=== PATIENT | male | born 1975 | race African-American/Black ===

== ENCOUNTER 2021-10-02 16:12 | Emergency (ER) | payer MEDICARE, SELFPAY ==
[2021-10-02 16:27] VITALS: BP 117/70; BP 119/77; PULSE 80; PULSE 83; TEMP 37; O2SAT 100; O2SAT 97; BMI 25.7
--- NOTE | 2021-10-02 16:57 | ED.PSYCH ---
HPI - Psych General Chief Complaint: Psychiatric Symptoms Stated Complaint: Crisis Time Seen by Provider: 10/02/21 16:56 Source: patient and EMS Mode of arrival: EMS Limitations: no limitations History of Present Illness HPI Narrative: Patient is a 46 year old male presenting to the emergency department today with increased depression. Patient states that lately he has been feeling more depressed than usual. Patient denies any SI or HI. Patient denies any dizziness, lightheadedness, abdominal pain, nausea, vomiting, fever, chills, blurry vision, double vision, loss of vision, chest pain, difficulty breathing, shortness of breath, back pain, night sweats, pain with urination, increased urinary frequency, increased urinary urgency, blood in his urine or stool, syncope or a near syncopal episode, recent trauma or falls, bowel incontinence, bladder incontinence, bowel retention, bladder retention, or any other complaints at this time. Patient states that he has a history of his left eye bothering him, so he wears an eyepatch. MD complaint: feels depressed Onset (ago): day(s) Duration: constant History of same: Yes Relieving factors: none Exacerbating factors: none Associated psychiatric symptoms: depression Associated symptoms: denies other symptoms Treatments prior to arrival: none Related Data Allergies Allergy/AdvReac Type Severity Reaction Status Date / Time No Known Allergies Allergy Verified 10/02/21 16:56 Review of Systems Constitutional: Constitutional: Reports no additional constitutional complaints, Denies chills, Denies fever(s) and Denies night sweats Eyes: Eyes: Reports no additional eye complaints, Denies blurry vision, Denies change in vision, Denies diplopia, Denies eye discharge, Denies loss of vision and Denies eye pain ENT: Denies dizziness Cardiovascular: Cardiovascular: Reports no additional cardiovascular complaints, Denies chest pain, Denies lightheadedness, Denies Loss of Consciousness and Denies dyspnea Respiratory: Respiratory: Reports no additional respiratory complaints and Denies dyspnea Gastrointestinal: Gastrointestinal: Reports no additional gastrointestinal complaints, Denies abdominal pain, Denies melena, Denies hematochezia, Denies change in bowel habits and Denies change in stool character Genitourinary: Genitourinary: Reports no additional male genitourinary complaints, Denies hematuria, Denies oliguria, Denies difficulty urinating, Denies dysuria, Denies urinary frequency, Denies urinary hesitancy, Denies urinary incontinence and Denies urinary urgency Musculoskeletal: Musculoskeletal: Reports no additional musculoskeletal complaints, Denies numbness and Denies tingling Neurologic: Denies dizziness, Denies loss of vision, Denies numbness and Denies tingling Psychiatric: Psychiatric: Reports no additional psychiatric complaints, Reports depression, Denies homicidal ideation and Denies suicidal ideation Endocrine: Endocrine: Reports no additional endocrine complaints Hematologic/Lymphatic: Hematologic/Lymphatic: Reports no additional hematologic/lymphatic complaints Allergic/Immunologic: Allergic/Immunologic: Reports no additional allergic/immunologic complaints PMFSH Past Medical History Attestation statement: The following information was validated with the patient. Source: old records reviewed Social History Social History Advance Directives: No Advance Directives Information Provided: No Physical Exam Vital Signs: Vital Signs: Last Vital Signs Temp 98.6 F 10/02/21 16:27 Pulse 80 10/02/21 16:27 BP 117/70 10/02/21 16:27 Pulse Ox 100 10/02/21 16:27 BMI result Body Mass Index 25.7 Const: General: cooperative, no acute distress, alert and awake Nutritional Appearance: well nourished Orientation/consciousness: patient oriented x3 Limitations: no limitations HENMT: Head: Yes normal to inspection and Yes atraumatic Ears: hearing grossly normal bilaterally and external ears normal General nose exam: Normal external nose present, no nasal discharge noted and no epistaxis Face and sinus: Yes normal facial exam, No abrasion and No laceration Mouth: Normal oral and palatal mucosa present, no drooling and no muffled voice Eyes: General: appearance normal, both eyes and all related structures Periorbital: periorbital findings normal Eyelids: Yes eyelids normal Conjunctivae: conjunctivae normal Pupils: Equal, round and reactive pupils present EOM: EOMs intact bilaterally Neck: Neck: Yes normal visual inspection, Yes full ROM and Yes no lymphadenopathy Chest: Chest palpation & inspection: normal inspection of the chest Resp: Effort & Inspection: normal respiratory effort and able to speak in complete sentences Auscultation: clear to auscultation bilaterally Cardio: Rate: regular rate Rhythm: regular rhythm GI: Inspection: Yes normal to inspection Neuro: General: patient oriented x3 and moves all extremities Cranial nerves: Yes Equal, round and reactive pupils present Cognition (Neuro): normal cognition Motor exam (neuro): 5/5 motor strength present throughout Sensory Exam: Normal double simultaneous stimulation for sensation Coordination: [id number] test normal Extrem: General: Yes normal to inspection, Yes full ROM and Yes capillary refill normal Psych: Appearance: grossly normal Mental Status: mental status grossly normal Affect: normal affect Attitude: cooperative Thought process: Normal thought process present Thought content: Normal thought content present Insight: Good insight present (Psych) MDM - Psych MDM Narrative Medical decision making narrative: Patient is a 46 year old male presenting to the emergency department today with increasing depression. Patient's physical exam was unremarkable. Patient's blood work was unremarkable. I explained my physical exam findings as well as all test results to the patient. I answered all questions asked by the patient. Patient was evaluated by N who recommended that the patient be reevaluated in the morning and work with [facility] for placement. Physician observation began 2032 and will end tomorrow morning when the patient is reevaluated. Differential Diagnosis Differential diagnosis: Likely depression Medical Records Attestation: I reviewed the patient's medical records. Lab Data Attestation: I reviewed the patient's lab results. Result diagrams: 10/02/21 17:23 10/02/21 17:23 Labs: Lab Results 10/02/21 10/02/21 10/02/21 Range/Units 16:50 16:59 17:23 WBC 6.6 (4.8-10.8) X10*3/uL RBC 4.28 L (4.60-5.80) X10*6/uL Hgb 13.6 L (14.0-18.0) g/dl Hct 42.0 (42.0-52.0) % MCV 98.1 H (80.0-98.0) fL MCH 31.8 (27.0-33.0) pg MCHC 32.4 (31.0-36.0) g/dl RDW 12.2 (11.0-16.0) % Plt Count 214 (160-400) X10*3/uL MPV 11.3 (9.4-12.4) fL Immature Gran % (Auto) 0.3 (0.0-0.4) % Neut % (Auto) 74.6 H (45-73) % Lymph % (Auto) 16.0 L (20-40) % [place] % (Auto) 7.4 (2-11) % Eos % (Auto) 1.4 (0-4) % Baso % (Auto) 0.3 (0-2) % Lymph # (Auto) 1.1 L (1.2-4.9) X10*3/uL [place] # (Auto) 0.5 (0.1-1.2) X10*3/uL Eos # (Auto) 0.1 (0.0-0.4) X10*3/uL Baso # (Auto) 0.0 (0.0-0.2) X10*3/uL Abs Immat Gran (auto) 0.02 (0.00-0.03) X10*3/uL Absolute Neuts (auto) 4.9 (2.0-8.3) x10*3/uL Absolute Nucleated RBC 0.000 (0.0-0.012) X10*3/uL Nucleated RBC % (auto) 0.0 (0.0-0.2) /100WBC Sodium (135-145) mmol/L Potassium (3.3-5.1) mmol/L Chloride (96-108) mmol/L Carbon Dioxide (22-29) mmol/L Anion Gap (12-20) BUN (9-16) mg/dL Creatinine (0.5-1.4) mg/dL Estim Creat Clear Calc Estimated GFR Random Glucose (60-115) mg/dL Calcium (8.4-10.2) mg/dL Total Bilirubin (0.0-1.0) mg/dL AST (5-37) U/L ALT (0-40) U/L Alkaline Phosphatase (39-117) U/L Total Protein (6.5-8.0) g/dL Albumin (3.5-5.0) g/dL Urine Opiates Screen Not Detected (Not Detect) Urine Fentanyl Screen Not Detected (Not Detect) Ur Barbiturates Screen Not Detected (Not Detect) Ur Phencyclidine Scrn Not Detected (Not Detect) Ur Amphetamines Screen Not Detected (Not Detect) U Benzodiazepines Scrn Not Detected (Not Detect) Urine Cocaine Screen Not Detected (Not Detect) U Marijuana (THC) Screen Not Detected (Not Detect) Ethyl Alcohol mg/dL COVID-19 ([facility]) Negative (Negative) COVID-19 Clin Com See Note 10/02/21 10/02/21 Range/Units 17:23 17:23 WBC (4.8-10.8) X10*3/uL RBC (4.60-5.80) X10*6/uL Hgb (14.0-18.0) g/dl Hct (42.0-52.0) % MCV (80.0-98.0) fL MCH (27.0-33.0) pg MCHC (31.0-36.0) g/dl RDW (11.0-16.0) % Plt Count (160-400) X10*3/uL MPV (9.4-12.4) fL Immature Gran % (Auto) (0.0-0.4) % Neut % (Auto) (45-73) % Lymph % (Auto) (20-40) % [place] % (Auto) (2-11) % Eos % (Auto) (0-4) % Baso % (Auto) (0-2) % Lymph # (Auto) (1.2-4.9) X10*3/uL [place] # (Auto) (0.1-1.2) X10*3/uL Eos # (Auto) (0.0-0.4) X10*3/uL Baso # (Auto) (0.0-0.2) X10*3/uL Abs Immat Gran (auto) (0.00-0.03) X10*3/uL Absolute Neuts (auto) (2.0-8.3) x10*3/uL Absolute Nucleated RBC (0.0-0.012) X10*3/uL Nucleated RBC % (auto) (0.0-0.2) /100WBC Sodium 137 (135-145) mmol/L Potassium 4.5 (3.3-5.1) mmol/L Chloride 103 (96-108) mmol/L Carbon Dioxide 28 (22-29) mmol/L Anion Gap 11 L (12-20) BUN 11 (9-16) mg/dL Creatinine 1.09 (0.5-1.4) mg/dL Estim Creat Clear Calc 98.4 Estimated GFR > 60 Random Glucose 86 (60-115) mg/dL Calcium 9.3 (8.4-10.2) mg/dL Total Bilirubin 0.5 (0.0-1.0) mg/dL AST 27 (5-37) U/L ALT 23 (0-40) U/L Alkaline Phosphatase 107 (39-117) U/L Total Protein 7.7 (6.5-8.0) g/dL Albumin 4.2 (3.5-5.0) g/dL Urine Opiates Screen (Not Detect) Urine Fentanyl Screen (Not Detect) Ur Barbiturates Screen (Not Detect) Ur Phencyclidine Scrn (Not Detect) Ur Amphetamines Screen (Not Detect) U Benzodiazepines Scrn (Not Detect) Urine Cocaine Screen (Not Detect) U Marijuana (THC) Screen (Not Detect) Ethyl Alcohol < 10 mg/dL COVID-19 ([facility]) (Negative) COVID-19 Clin Com Discharge Plan Discharge Clinical Impression: Depression Patient Disposition: Still a Patient Print Language: Samoan
[2021-10-02 17:24] LABS: COVID-19 Test Negative (Negative)
[2021-10-02 17:26] LABS: Amphetamine Screen Urine Not Detected (Not Detect); Barbiturates, Urine Not Detected (Not Detect); Benzodiazepines Screen Urine Not Detected (Not Detect); Cannabinoid Screen Urine Not Detected (Not Detect); Cocaine Screen Urine Not Detected (Not Detect); Fentanyl, urine Not Detected (Not Detect); Opiate Screen Urine Not Detected (Not Detect); Phencyclidine Screen Urine Not Detected (Not Detect)
[2021-10-02 17:28] LABS: MANUAL DIFF FLAG NO
[2021-10-02 17:29] LABS: Basophils Percent Auto 0.3 % (0-2); Eosinophils Absolute Auto 0.1 X10*3/uL (0.0-0.4); Eosinophils Percent Auto 1.4 % (0-4); Hemoglobin 13.6 g/dl (14.0-18.0); Imm Gran Abs Auto 0.02 X10*3/uL (0.00-0.03); Imm Gran Pct Auto 0.3 % (0.0-0.4); Lymphocytes Absolute Auto 1.1 X10*3/uL (1.2-4.9); Mean Corpuscular HGB Conc 32.4 g/dl (31.0-36.0); Mean Corpuscular Hemoglobin 31.8 pg (27.0-33.0); Mean Corpuscular Volume 98.1 fL (80.0-98.0); Mean Platelet Volume 11.3 fL (9.4-12.4); Monocytes Absolute Auto 0.5 X10*3/uL (0.1-1.2); Monocytes Percent Auto 7.4 % (2-11); Neutrophils Absolute Auto 4.9 x10*3/uL (2.0-8.3); Neutrophils Percent Auto 74.6 % (45-73); Platelet Count 214 X10*3/uL (160-400); Red Blood Count 4.28 X10*6/uL (4.60-5.80); Red Cell Distribution Width 12.2 % (11.0-16.0); White Blood Count 6.6 X10*3/uL (4.8-10.8)
[2021-10-02 17:41] LABS: Ethanol < 10 mg/dL
[2021-10-02 17:44] LABS: Alanine Aminotransferase 23 U/L (0-40); Albumin Level 4.2 g/dL (3.5-5.0); Alkaline Phosphatase 107 U/L (39-117); Anion Gap 11 (12-20); Aspartate Amino Transferase 27 U/L (5-37); Bilirubin Total 0.5 mg/dL (0.0-1.0); Blood Urea Nitrogen 11 mg/dL (9-16); Calcium 9.3 mg/dL (8.4-10.2); Carbon Dioxide 28 mmol/L (22-29); Chloride 103 mmol/L (96-108); Creatinine Clr Calc Pharmacy 98.4; Estimated Glomerular Filt Rate > 60; Glucose Random 86 mg/dL (60-115); Potassium 4.5 mmol/L (3.3-5.1); Sodium 137 mmol/L (135-145); Total Protein 7.7 g/dL (6.5-8.0)
[2021-10-03 00:02] VITALS: BP 103/60; PULSE 72; RESP 17; TEMP 37.1; O2SAT 100
--- NOTE | 2021-10-03 06:04 | PC.NURSE ---
Patient currently sleeping, stayed up late, no distress observed/reported, patient was seen by [facility] disposition d/c am, but before d/c patient needs to be seen by [facility], behavior appropriate, will continue to monitor.
--- NOTE | 2021-10-03 07:13 | PC.NURSE ---
patient appears to remain asleep at present respirations are even and unlabored, patient appears in no distress
== END 2021-10-03 15:14 | disposition other institution (70) ==
PROVIDERS: Physician Assistant Medical; Emergency Provider Emergency Medicine
DX: F32.A Depression, unspecified (principal); Z20.822 Contact with and (suspected) exposure to COVID-19
CPT/HCPCS: 36415; 80053; 80307; 82077; 85025; 87635; 99285

== ENCOUNTER 2021-10-31 12:43 | Emergency (ER) | payer MEDICARE, SELFPAY ==
[2021-10-31 12:58] VITALS: BP 129/63; PULSE 91; RESP 18; TEMP 37.1; O2SAT 99; BMI 25.7
--- NOTE | 2021-10-31 13:13 | ED_ITS ---
HPI - General Adult General Chief complaint: General Medical Stated complaint: ?crisis Source: patient Mode of arrival: ambulatory Limitations: no limitations History of Present Illness HPI narrative: 46-year-old male history of depression presents to ED requesting to speak to a psychiatrist for placement so he could no longer be homeless. Patient states he has been homeless since 2014. Patient denies any suicidal or homicidal ideation. Patient denies any auditory/visual hallucinations. Related Data Allergies Allergy/AdvReac Type Severity Reaction Status Date / Time No Known Allergies Allergy Verified 10/02/21 16:56 Review of Systems Review of Systems: Requesting to be seen by psychiatrist for homelessness. Yes all other systems are reviewed and are negative [facility] Past Medical History Medical History (Updated 10/31/21 @ 15:34 by AVANI Orr) Schizophrenia Social History Social History Advance Directives: No Advance Directives Information Provided: Yes Physical Exam ED Vital Signs: Vital Signs - 24 hr 10/31/21 12:58 Temperature 98.7 F Pulse Rate 91 Respiratory Rate 18 Blood Pressure 129/63 Pulse Oximetry 99 BMI result Body Mass Index 25.7 Const General: cooperative, healthy appearing, comfortable, no acute distress, well developed, alert, awake and Physically active Orientation/consciousness: patient oriented x3 HENMT Head: Yes normal to inspection, Yes No palpable skull fracture present, Yes normocephalic, Yes atraumatic and No abrasion Eyes General: appearance normal, both eyes and all related structures Neck Neck: Yes normal visual inspection, Yes full ROM, Yes no lymphadenopathy, Yes no meningeal signs, Yes trachea midline, Yes supple, No anterior neck swelling and No tender Chest Chest palpation & inspection: normal inspection of the chest and normal palpation of entire chest wall Resp Effort & Inspection: normal respiratory effort and able to speak in complete sentences Cardio Jugular venous distension: no JVD Heart sounds: S1 normal heart sound present and S2 normal heart sound present GI Inspection: Yes normal to inspection and No abdominal wall ecchymosis Palpation (GI): Soft to palpation, not firm, nontender, no guarding and not rigid General: No CVA tenderness and Yes no CVA tenderness Back/Spine/Pelvis Back: no CVA tenderness, No CVA tenderness and No back tenderness Skin General skin exam: no rashes or lesions noted and elasticity normal Neuro General: patient oriented x3, gait normal, no meningeal signs and CN's II-XI intact bilaterally Cranial nerves: Yes CN's II-XII intact bilaterally Extrem General: Yes normal to inspection and Yes full ROM Psych Appearance: grossly normal, well kempt and not disheveled Course Course Course Narrative: DS and COVID swab ordered. Care team consulted placed. Care team consulted Anastasiia states someone come and see patient. Reevaluation(s) Reevaluation #1: Patient evaluated by care team consulted Anastasiia who states patient is safe for discharge. Patient has a place to go and live. Patient will follow up with therapist. I re-evaluated patient agree with the plan. Patient denies any suicidal or homicidal ideation. Patient denies any auditory/visual hallucin ations. Patient is safe for discharge. Time: 15:32 Medical Decision Making MDM Narrative Medical decision making narrative: Adjustment disorder Lab Data Labs: Lab Results 10/31/21 10/31/21 Range/Units 13:39 13:39 Urine Opiates Screen Not Detected (Not Detect) Urine Fentanyl Screen Not Detected (Not Detect) Ur Barbiturates Screen Not Detected (Not Detect) Ur Phencyclidine Scrn Not Detected (Not Detect) Ur Amphetamines Screen Not Detected (Not Detect) U Benzodiazepines Scrn Not Detected (Not Detect) Urine Cocaine Screen Not Detected (Not Detect) U Marijuana (THC) Screen Not Detected (Not Detect) COVID-19 ([facility]) Negative (Negative) COVID-19 Clin Com See Note Discharge Plan Discharge Clinical Impression: Adjustment disorder Patient Disposition: Home, Self-Care Instructions: Mood Disorders (ED) Additional Instructions: You are safe for discharge. Through to the ED feeling suicidal/homicidal ideation, any auditory/visual hallucinations, any physical complaints, or any other concerning symptoms. Please follow-up with primary care provider, therapist, and psychiatrist. Interventions: ED Discharge Assessment Last Done: 10/31/21 15:39 Discharge Date/Time: 10/31/21 16:04 Print Language: Upper Sorbian
[2021-10-31 14:01] LABS: Amphetamine Screen Urine Not Detected (Not Detect); Barbiturates, Urine Not Detected (Not Detect); Benzodiazepines Screen Urine Not Detected (Not Detect); Cannabinoid Screen Urine Not Detected (Not Detect); Cocaine Screen Urine Not Detected (Not Detect); Fentanyl, urine Not Detected (Not Detect); Opiate Screen Urine Not Detected (Not Detect); Phencyclidine Screen Urine Not Detected (Not Detect)
[2021-10-31 14:09] LABS: COVID-19 Test Negative (Negative); IDNOW Serial# 55D5AD1C
--- NOTE | 2021-10-31 15:22 | MHC.CARE ---
Tristin case mgr- Gege [phone] Cherri case mgr-Bonnie [phone]
--- NOTE | 2021-10-31 15:28 | MHC.CARE ---
CARE Team left a VM for Pts [facility] and [facility] case mangers.
--- NOTE | 2021-10-31 15:37 | MHC.CARE ---
Plan for [employer] [facility] to call back with confirmation of hot address.
--- NOTE | 2021-10-31 17:19 | MHC.CARE ---
Unfortunately, pt left the waiting room and boarded the bus before CARE Team heard back from his keno writer regarding placement. CARE Team followed up with [facility] keno writer, Gege, ([phone]) who reported that pt may return to the ED at a later time and asked that she be called if he does return to the ED. Pt has a room waiting for him at [facility] ([facility], [place], [place]) [facility] if he returns.
== END 2021-10-31 16:04 | disposition home or self-care (01) ==
PROVIDERS: Physician Assistant; Emergency Provider Emergency Medicine
DX: F43.20 Adjustment disorder, unspecified (principal); F20.9 Schizophrenia, unspecified; Z59.00 Homelessness unspecified; Z20.822 Contact with and (suspected) exposure to COVID-19
CPT/HCPCS: 80307; 87635; 99283; 99284

== ENCOUNTER 2023-11-06 18:22 | Emergency (ER) | payer MEDICARE, SELFPAY ==
--- NOTE | 2023-11-06 19:23 | ED.NAVMDI ---
HPI - Nausea/Vomiting/Diarrhea General Chief complaint: Nausea/Vomiting/Diarrhea Stated complaint: diarrhea x2 days, weakness and nausea Time Seen by Provider: 11/06/23 21:07 Source: patient Mode of arrival: ambulatory Limitations: no limitations History of Present Illness HPI Narrative: Patient comes to the emergency room complaining of multiple episodes of diarrhea, no nausea or vomiting. Patient denies abdominal pain. Patient states that he did not take any medications over the counter prior to arriving to the emergency room. Related Data Previous Rx's Medication Instructions Recorded loperamide 2 mg capsule 2 mg PO Q4H PRN loose stool #14 11/06/23 caps Allergies Allergy/AdvReac Type Severity Reaction Status Date / Time No Known Allergies Allergy Verified 11/06/23 19:24 Review of Systems Review of Systems: Constitutional : No Weight loss, No Fever, No Chills, No Night Sweats, No Fatigue, No Malaise ENT/Mouth : No Hearing loss, No Ear Pain, No Nasal Congestion, No Sinus Pain, No Hoarseness, No sore throat, No Rhinorrhea, No Swallowing Difficulty Eyes: No Eye Pain, No Swelling, No Redness, No Foreign Body, No Discharge, No Vision Changes Cardiovascular : No Chest Pain, No SOB, No Dyspnea on Exertion, No Orthopnea, No Edema, No Palpitations Respiratory : No Cough, No Sputum, No Wheezing, No Smoke Exposure, No Dyspnea Gastrointestinal : No Nausea, No Vomiting, complaining of watery Diarrhea, No Constipation, No abdominal Pain, No Hematochezia, No Melena Genitourinary : no irregular bleeding, No Dysuria, No Urinary Frequency, No Hematuria, No Urinary Incontinence, No Urgency, No Flank Pain, No Urinary Flow Changes, No Hesitancy Musculoskeletal : No joint pain, No Myalgias, No Joint Swelling Skin : No Skin Lesions, No rash Neuro : No Weakness, No Numbness, No Paresthesias, No Loss of Consciousness, No Dizziness, No Headache Psych : No Anxiety/Panic, No Depression, No SI/HI/AH/VH, No Social Issues, Heme/Lymph: No Bruising, No Bleeding,No Lymphadenopathy Endocrine : No Polyuria, No Polydipsia, No Temperature Intolerance PMFSH Past Medical History Medical History Schizophrenia Social History Social History Smoked in Last 30 Days: No Use of substances other than those prescribed or required for medical reasons: No Advance Directives: No Advance Directives Information Provided: No Physical Exam Vital Signs: Vital Signs: Last Vital Signs Temp 98.8 F 11/06/23 19:24 Pulse 90 11/06/23 19:24 Resp 16 11/06/23 19:24 BP 119/80 11/06/23 19:24 Pulse Ox 100 11/06/23 19:24 O2 Del Method Room Air 11/06/23 19:24 BMI result Body Mass Index 21.2 Const: Other: Appearance: Alert. Oriented X3. Very somnolent, wakes up and is able to have a coherent conversation, but falls asleep easily. Eyes: Pupils equal, round and reactive to light. ENT: Pharynx normal. Neck: Normal inspection. Neck supple. No lymph nodes noted. No crepitus CVS: Normal heart rate and rhythm. Pulses normal. Normal S1 and S2 Respiratory: No respiratory distress. Breath sounds normal. No Wheezing. No rales Abdomen: Soft and nontender. No rigidity. No distention. Skin: Skin warm and dry. Normal skin color. Normal skin turgor. Extremities: No lower extremity edema. No Lacerations. No Rash Neuro: Oriented X 3. No motor deficit. No sensory deficit. Moving all extremities. No slurred speech. CN 2 through 12 grossly intact Psych: calm, cooperative, normal affect Course Course Course Narrative: This is an RME: Additional HPI, ROS, PE not included below will be deferred to primary provider. Patient is a 48-year-old male who presents emergency department for evaluation of multiple episodes of diarrhea since yesterday night in addition to nausea and generalized weakness. Denies abdominal pain or vomiting. Denies any known sick contacts. Medications Administered Discontinued Medications Generic Name Dose Route Start Last Admin Trade Name Freq PRN Reason Stop Dose Admin Loperamide HCl 4 mg 11/06/23 21:14 11/06/23 21:29 Loperamide Hcl 2 Mg Capsule PO 11/06/23 21:15 4 mg ONCE ONE Administration Medical Decision Making Medical Decision Making MDM Narrative: -all of patient's labs pending -my interpretation of labs: Serology negative for RSV, fluid and COVID. -patient refused to have blood work done. Patient ready for discharge Differential Diagnosis Differential Diagnoses: The differential diagnosis associated with the presentation includes (Viral syndrome, diarrhea, gastroenteritis) Lab Data Labs: Lab Results 11/06/23 Range/Units 19:45 Influenza Type A (PCR) NEGATIVE (Negative) Influenza Type B (PCR) NEGATIVE (Negative) RSV RNA Qual (PCR) NEGATIVE (Negative) SARS-CoV-2 RNA (RT-PCR) NEGATIVE (Negative) Discharge Plan Discharge Clinical Impression: Diarrhea Patient Disposition: Home, Self-Care Instructions: Acute Diarrhea (ED) Prescriptions: New loperamide 2 mg capsule 2 mg PO Q4H PRN (Reason: loose stool) Qty: 14 0RF Rx Instructions: administer after each loose stool until symptoms controlled; do not exceed 8 mg per 24 hrs
[2023-11-06 19:24] VITALS: BP 119/80; PULSE 90; RESP 16; TEMP 37.1; O2SAT 100; BMI 21.2
[2023-11-06 20:37] LABS: Influenza A PCR NEGATIVE (Negative); Influenza B PCR NEGATIVE (Negative); Resp Syncy Virus RNA Qual PCR NEGATIVE (Negative); SARS COV2 PCR INHOUSE NEGATIVE (Negative)
[2023-11-06] MEDS: Loperamide HCl 2 MG CAPSULE 4 MG PO (21:29)
--- NOTE | 2023-11-06 22:41 | MHC.EDTECH ---
Patient refused to get blood drawn stating it wasn't necessary
--- NOTE | 2023-11-06 22:51 | PC.NURSE ---
pt refused additional labs ordered by provider, dr.peters [place].
[2023-11-06 23:01] VITALS: BP 119/80; PULSE 90; RESP 16; TEMP 37.2; O2SAT 100
== END 2023-11-06 23:03 | disposition home or self-care (01) ==
PROVIDERS: Nurse Practitioner Family; Emergency Provider Emergency Medicine
DX: R19.7 Diarrhea, unspecified (principal); Z03.818 Encounter for observation for suspected exposure to other biological agents ruled out
CPT/HCPCS: 0241U; 99283; 99284

== ENCOUNTER 2023-11-07 21:38 | Emergency (ER) | payer MEDICARE, SELFPAY ==
[2023-11-07 21:51] VITALS: BP 132/86; PULSE 64; O2SAT 98; BMI 23.1
[2023-11-07 21:59] VITALS: BP 111/76; PULSE 107; RESP 14; TEMP 37; O2SAT 97
--- NOTE | 2023-11-07 22:03 | ED.PSYCH ---
HPI - Psych General Chief Complaint: Psychiatric Symptoms Stated Complaint: CRISIS Time Seen by Provider: 11/07/23 21:41 Source: patient and old records reviewed Mode of arrival: EMS Limitations: other (poor historian) History of Present Illness HPI Narrative: 48 yo male with PMH of depression/schizophrenia he comes in with a folder and complaining that he has open court cases for trespassing and that he needs me to help him get an sports attorney for this. In fact it reads that he is out on 1,000 bail for assault and threats. He then states he was just at [facility] and they gave him a chcf list but he cannot go to shelters as he is no longer allowed to be there. He also states he wants me to place him in housing care home until he can figure out his court cases. He then states his legs hurt from walking and when I asked to look at them he refused and refused blood work. He has no other medical complaints and no SI. complaint: other (legal issues and housing issues) Onset (ago): week(s) Duration: getting worse History of same: Yes Relieving factors: none Exacerbating factors: other Context: significant life stressor Associated psychiatric symptoms: none Associated symptoms: other (legs hurts from walking) Treatments prior to arrival: none Related Data Previous Rx's Medication Instructions Recorded loperamide 2 mg capsule 2 mg PO Q4H PRN loose stool #14 11/06/23 caps Allergies Allergy/AdvReac Type Severity Reaction Status Date / Time No Known Allergies Allergy Verified 11/06/23 19:24 Review of Systems Review of Systems: Constitutional : No Fever, No Chills ENT/Mouth : No Ear Pain, No Hoarseness, No sore throat Eyes: No Eye Pain, No Swelling, No Redness, No Foreign Body Cardiovascular : No Chest Pain, No SOB Respiratory : No Cough, No Dyspnea Gastrointestinal : No Nausea, No Vomiting, No Diarrhea, No abdominal Pain Genitourinary : No Dysuria, No Hematuria Musculoskeletal : positive joint pain, No Myalgias, No Joint Swelling Skin : No Skin lacerations, No rash Neuro : No Weakness, No Numbness, No Loss of Consciousness, No Dizziness, No Headache Psych : pos Anxiety/Panic, No Depression All other systems reviewed and are negative [facility] Past Medical History Attestation statement: The following information was validated with the patient. Source: old records reviewed Medical History Schizophrenia Social History Social History (Updated 11/07/23 @ 22:16 by Yaneth Green DO) Patient Tobacco Use Status: Tobacco use Unknown Physical Exam Vital Signs: Vital Signs: BMI result Body Mass Index 23.1 Appearance: Alert. Oriented X3. No acute distress. thought process is coherent, does not appear manic, does not seems to be responding to internal stimuli Eyes: Pupils equal, round and reactive to light. ENT: Pharynx normal. atraumatic Neck: Normal inspection. Neck supple. CVS: Pulses normal. Respiratory: No respiratory distress. Abdomen: Soft and non-tender. Skin: Skin warm and dry. Normal skin color. Extremities: No lower extremity edema. will not allow exam of lower extremities Neuro: Oriented X 3. No motor deficit. No sensory deficit. Medical Decision Making Medical Decision Making [facility] Narrative: 48 yo male with PMH of schizophrenia here with c/o wanting help getting sports attorney as well as ocean transportation intermediary housing but he is out on what appears to be assault and threat charges. He wants our CARE team to also help him get and sports attorney. I explained we are a medical hospital but this did not seem to satisfy him. He does not want any other workup at this time including labs he will not allow me to look at his legs. He has no SI/HI. He is not responding to any internal stimuli. He can no longer stay at [facility] due to other social issue and now is here in [place]. Can be discharged at this time given he wants no medical workup has no SI/HI. Differential Diagnosis Differential Diagnoses: The differential diagnosis associated with the presentation includes social issues, schizophrenia Lab Data [facility] Lab Attestation statement: I reviewed the patient's lab results. Independent Historian Clinical information obtained from an independent historian. History obtained from or confirmed by: EMS External Record Review External record reviewed: Inpatient record Social Determinants Patient?s care significantly limited by Social Determinants of Health including: Problems related to primary support group Discharge Plan Discharge Clinical Impression: Adjustment disorder Qualifiers: Adjustment disorder type: unspecified type Qualified Code(s): F43.20 - Adjustment disorder, unspecified Instructions: Stress (ED) Additional Instructions: you will need to contact an sports attorney given your upcoming court cases and issues you declined blood work in the ED for your leg pain you can follow up with the chcf list given to you return for any worsening medical complaints or concerns. Prescriptions: No Action loperamide 2 mg capsule 2 mg PO Q4H PRN (Reason: loose stool) Qty: 14 0RF Rx Instructions: administer after each loose stool until symptoms controlled; do not exceed 8 mg per 24 hrs Interventions: [place]-Suicide Risk Severity Scale Last Done: 11/07/23 21:59
--- NOTE | 2023-11-07 22:07 | PC.NURSE ---
Pt arrived via EMS, calm and cooperative, resting at the bedside. Reporting bilateral hernandez pain, 03/19. Requesting assistance with obtaining a access control specialist and housing. Pt presented court document stating pts offenses of assault, disorderly, and threats. Provider aware of pts needs. At this time pt is refusing to have blood work drawn stating it is not necessary . Denies SI/HI. MLP at bedside.
[2023-11-07 23:09] VITALS: BP 0/0; PULSE 0; RESP 0; TEMP -17.7; TEMP 0
== END 2023-11-07 23:10 | disposition home or self-care (01) ==
PROVIDERS: Emergency Provider Emergency Medicine
DX: F43.20 Adjustment disorder, unspecified (principal); F25.9 Schizoaffective disorder, unspecified; Z59.02 Unsheltered homelessness
CPT/HCPCS: 99284

== ENCOUNTER 2024-02-05 12:24 | Emergency (ER) | payer MEDICARE, SELFPAY ==
[2024-02-05 12:28] VITALS: BP 110/65; PULSE 88; RESP 20; TEMP 37.2; O2SAT 100; BMI 25.7
--- NOTE | 2024-02-05 12:45 | MHC.EDTECH ---
Patient asked to use bathroom, this tech provided patient with urine cup and wipes for sample. Patient agreeable but upon leaving bathroom stated he had to go so bad he forgot to give sample. Patient states will give sample next time he needs to use bathroom. SHALOM [place].
--- NOTE | 2024-02-05 12:56 | ED_ITS ---
HPI - Extremity Problem General Chief complaint: Extremity Problem Stated complaint: R ANKLE PAIN Time Seen by Provider: 02/05/24 12:53 Source: patient, EMS and old records reviewed Mode of arrival: EMS Limitations: no limitations History of Present Illness ED Provider: hood HPI Narrative: Patient is a 49-year-old male with history of schizophrenia presenting to the emergency department with complaint of right lower leg pain and warmth for the past two weeks. He was discharged from [facility] 20 minutes prior to calling EMS for leg pain. He denies fevers/chills/body aches. Denies discharge or drainage from the area. Denies any numbness or tingling. Complaint: extremity pain Onset (ago): week(s) Location: right and lower extremity Quality: aching Radiation: none Relieving factors: nothing Exacerbating factors: palpation Associated symptoms: denies other symptoms Related Data Previous Rx's ?Medication ?Instructions ?Recorded loperamide 2 mg capsule 2 mg PO Q4H PRN loose stool #14 11/06/23 caps cephalexin 500 mg capsule 500 mg PO QID #28 caps 02/05/24 doxycycline hyclate 100 mg capsule 100 mg PO BID #14 caps 02/05/24 Allergies Allergy/AdvReac Type Severity Reaction Status Date / Time No Known Allergies Allergy Verified 02/05/24 12:29 Review of Systems Review of Systems: As per HPI. Yes all other systems are reviewed and are negative Constitutional: Constitutional: Reports as per HPI [facility] Past Medical History Medical History Schizophrenia Social History Social History (Updated 11/07/23 @ 22:16 by Yaneth Green DO) Patient Tobacco Use Status: Tobacco use Unknown Do you have a plan to hurt others: No Plan Physical Exam Vital Signs: Vital Signs: Last Vital Signs Temp 98.9 F 02/05/24 12:28 Pulse 88 02/05/24 12:28 Resp 20 02/05/24 12:28 BP 110/65 02/05/24 12:28 Pulse Ox 100 02/05/24 12:28 O2 Del Method Room Air 02/05/24 12:28 BMI result Body Mass Index 25.7 Vital signs have been reviewed and appear to be correct. Blood pressure normal. Heart rate normal. Respiratory rate normal. Temperature normal. Oxygen saturation normal. Const: General: cooperative, healthy appearing and no acute distress Orientation/consciousness: oriented to person, oriented to place, oriented to time and patient oriented x3 Limitations: no limitations HEENT: Head: Yes normocephalic and Yes atraumatic Ears: external ears normal General nose exam: Normal external nose present Face and sinus: Yes face symmetric Mouth: oropharynx normal and moist mucous membranes Throat: Yes uvula midline Eyes: Pupils: Equal, round and reactive pupils present Neck: Neck: Yes normal visual inspection and Yes supple Resp: Effort & Inspection: normal respiratory effort and able to speak in co mplete sentences Auscultation: clear to auscultation bilaterally Cardio: Rate: regular rate Rhythm: regular rhythm Heart sounds: S1 normal heart sound present and S2 normal heart sound present GI: Palpation (GI): Soft to palpation and nontender Auscultation: normoactive bowel sounds : General: Yes no CVA tenderness Back/Spine/Pelvis: Back: no CVA tenderness Skin: General skin exam: elasticity normal and turgor normal Neuro: General: oriented to person, oriented to place, oriented to time, patient oriented x3, moves all extremities, no focal motor deficits and CN's II- XI intact bilaterally Cranial nerves: Yes Equal, round and reactive pupils present Cognition (Neuro): normal cognition Extrem: General: Yes full ROM, Yes no pedal edema and Yes no calf tenderness Right lower extremity: lower leg Details: erythema Location: of the distal lower leg Location: medially, tenderness (distal medial lower leg) and warmth Location: of the distal lower leg; no localized swelling and foot Details: vascular exam Details: dorsalis pedis pulse present, posterior tibial pulse present and normal capillary refill Psych: Mental Status: mental status grossly normal Affect: normal affect Thought process: Normal thought process present Medical Decision Making Medical Decision Making MDM Narrative: Patient is a 49-year-old male with history of schizophrenia presenting to the emergency department with complaint of right lower leg pain and warmth for the past two weeks. On exam patient is awake, A+Ox3, VS WNL, afebrile, normal neurological exam without focal deficits, physical exam findings as above. Given reported symptoms and physical exam findings, initial differential includes cellulitis, venous stasis. Do not suspect DVT. Patient initially agreeable to labs, now refusing labs. Vital signs are stable, feel patient is appropriate for outpatient treatment. Will treat for cellulitis with doxy and keflex. Instructed patient to follow up with PCP. Return precautions discussed. Differential Diagnosis Differential Diagnoses: The differential diagnosis associated with the presentation includes As per [facility] External Record Review External record reviewed: Inpatient record, Office record and Outpatient record Prescription Management I considered prescription management with: Antibiotic Discharge Plan Discharge Clinical Impression: Cellulitis Qualifiers: Site of cellulitis of extremity: lower extremity Laterality: right Patient Disposition: Home, Self-Care Instructions: Cellulitis (DC) Additional Instructions: You have been evaluated in the emergency department today for skin infection, also known as cellulitis. Please take your prescribed antibiotics as directed f or the full course of the medication. You can use Tylenol or ibuprofen per package instructions every 6 hours as needed for pain. If necessary, you can alternate these medications so that you can take one medication every 3 hours. For instance, at noon take ibuprofen, then at 3:00 p.m. take Tylenol, then at 6:00 p.m. take ibuprofen. Please schedule an appointment for follow-up with your primary care physician as soon as possible. Return to the emergency department if you experience recurrent vomiting, fevers greater than 100.4? F, increasing area of redness, warmth around the area, foul-smelling discharge from the area, increased tenderness around the area, or any other concerning symptoms. Prescriptions: New doxycycline hyclate 100 mg capsule 100 mg PO BID Qty: 14 0RF cephalexin 500 mg capsule 500 mg PO QID Qty: 28 0RF No Action loperamide 2 mg capsule 2 mg PO Q4H PRN (Reason: loose stool) Qty: 14 0RF Rx Instructions: administer after each loose stool until symptoms controlled; do not exceed 8 mg per 24 hrs Print Language: Sami
--- NOTE | 2024-02-05 13:38 | PC.NURSE ---
Addendum entered by Ольга Green 02/05/24 13:39: Patient refusing blood work, [facility] aware, will write for discharge Original Note: Patient refusing DC
--- NOTE | 2024-02-05 13:38 | MHC.EDTECH ---
This tech approached patient to attempt to perform phlebotomy. Patient refused labs at this time, asking if a provider could just give him an antibiotic. Relayed information to Ольга RAUSCH
[2024-02-05 14:48] VITALS: BP 110/65; PULSE 88; RESP 20; TEMP 37.2; O2SAT 100
== END 2024-02-05 14:49 | disposition home or self-care (01) ==
PROVIDERS: Emergency Provider Emergency Medicine
DX: L03.115 Cellulitis of right lower limb (principal)
CPT/HCPCS: 99282

== ENCOUNTER 2024-03-29 12:25 | Emergency (ER) | payer MEDICARE, SELFPAY ==
--- NOTE | 2024-03-29 12:51 | PC.NURSE ---
Pt not present in WR when called for triage x3.
== END 2024-03-29 13:16 | disposition left against medical advice (07) ==
PROVIDERS: Emergency Provider Emergency Medicine
DX: Z04.9 Encounter for examination and observation for unspecified reason (principal)

== ENCOUNTER 2024-04-07 18:14 | Emergency (ER) | payer MEDICARE, SELFPAY ==
[2024-04-07 18:18] VITALS: RESP 16; BMI 23.0
[2024-04-07 18:32] VITALS: RESP 16
--- NOTE | 2024-04-07 18:35 | PC.NURSE ---
Eduardo comes in today from [facility], pt was apparently just recently discharged from [facility] and somehow ended up at [facility]. EMS stated that he was refusing vitals and refused to answer any questions. Pt does appear to be withdrawn, answering questions in short answers or single words. He denies SI/HI/AH/VH. He repeatedly speaks about needing to get his trailer home secured, $2000 and saving energy. He is refusing vital signs at this time. Per CARE team Shameka, pt does have a hx of aggression in the past. Pt is calm and cooperative, alert to location, unable to elaborate on his birthday, situation or time. Currently resting on chair in 2 at this time
--- NOTE | 2024-04-07 19:04 | PC.NURSE ---
patient appears to remain at rest presently respirations are even and unlabored patient appears in no distress.
--- NOTE | 2024-04-07 19:18 | PC.NURSE ---
patient appraches t/w... will i see crisis today? (t/w asks for labs) im mainly just here for group home and housing (eventually the provider will meet with you and you can tell them why youre here)...notified clinical team.
--- NOTE | 2024-04-07 20:42 | ED.PSYCH ---
HPI - Psych General Chief Complaint: Psychiatric Symptoms Stated Complaint: crisis Time Seen by Provider: 04/07/24 20:42 Source: patient, EMS, RN notes reviewed and old records reviewed Mode of arrival: EMS Limitations: no limitations History of Present Illness ED Provider: PERLA WOOTEN PA-C HPI Narrative: 49 year old male with pmhx significant for schizophrenia presents to the ED today via EMS from [facility] requesting housing. He tells me he is not looking for any medical attention and would just like somewhere to live. He is requesting housing in his [facility] or the [place] in [place]. He he states he was recently at [facility] and ells me he needs his $2000 back from them and I'll be fine . Denies SI/HI. Denies AH/VH/TH. Denies illicit substance use. Denies EtOH consumption. Denies physical complaints at present. Related Data Home Medications ?Medication ?Instructions ?Recorded ?Confirmed No Known Home Meds 04/07/24 04/07/24 Allergies Allergy/AdvReac Type Severity Reaction Status Date / Time No Known Allergies Allergy Verified 04/07/24 18:31 Review of Systems Review of Systems: Constitutional: No fever, chills, fatigue, night sweats, weight changes ENT/Mouth: No ear pain, hearing loss, nasal congestion, sinus pain, rhinorrhea, sore throat Eyes: No eye pain, swelling, redness, vision changes, discharge Cardio: No chest pain, palpitations, [place], orthopnea, peripheral edema Pulm: No SOB, cough, sputum, wheezing, dyspnea, hemoptysis GI: No nausea, vomiting, hematemesis, abdominal pain, diarrhea, constipation, hematochezia, melena : No irregular bleeding, dysuria, frequency, urgency, hesitancy, hematuria, flank pain, urinary flow changes, urinary incontinence or retention MSK: No back pain, neck pain, joint pain, myalgias Skin: No lesions, rashes Neuro: No weakness, numbness, paresthesias, LOC, dizziness, headache Psych: No anxiety/panic, depression, SI/HI, AH/VH All other systems reviewed and are negative. [facility] Past Medical History Attestation statement: The following information was validated with the patient. Source: old records reviewed and nursing notes reviewed Medical History Schizophrenia Social History Social History Patient Tobacco Use Status: Tobacco use Unknown Smoked in Last 30 Days: No Use of substances other than those prescribed or required for medical reasons: No Advance Directives: No Advance Directives Information Provided: No Physical Exam Vital Signs: Vital Signs: Last Vital Signs Resp 16 04/07/24 18:32 BMI result Body Mass Index 23.0 Respirations wnl. General: Well appearing, in no acute distress. Skin: Warm, dry, intact Head: Normocephalic, atraumatic. Lungs: Normal respiratory effort without accessory muscle use Ext: Upper and lower extremities atraumatic, without deformity, swelling or erythema. Psych: Appropriate mood and affect. Responds appropriately to questions. Medical Decision Making Medical Decision Making MDM Narrative: 49 year old male with pmhx significant for schizophrenia presents to the ED today via EMS from [facility] requesting housing. Patietn declining vitals at this time. Respirations wnl. He is nontoxic appearing in NAD. Pleasant. Declining further medical examination at this time. Plan for labs, UA/UDS, care team and disposition. Differential Diagnosis Differential Diagnoses: The differential diagnosis associated with the presentation includes as above. Admission/Observation not indicated Discharge Plan Discharge Clinical Impression: Homelessness Patient Disposition: Still a Patient Prescriptions: No Action No Known Home Meds Interventions: [place]-Suicide Risk Severity Scale Last Done: 04/07/24 18:33 Print Language: Honduran
--- NOTE | 2024-04-07 23:07 | MHC.EDTECH ---
pt continues to refuse lab draw.
[2024-04-08 00:05] VITALS: RESP 16
[2024-04-08 06:08] VITALS: RESP 16
--- NOTE | 2024-04-08 08:19 | PHA.MEDREC ---
Pharmacy Consult ? Medication Reconciliation Pharmacy has reviewed the medication reconciliation don by nursing.
--- NOTE | 2024-04-08 09:29 | PC.NURSE ---
Pt has been ambulatory in department. Refused all lab testing and VS again. Did sleep sitting up with feet on a pillow at 7am when this rn arrived. Is not able to state where he is it's starts with an H and is vague about reason for ED visit. States, it's not a medical condition so i don't need any medical attention. did eat breakfast but did request toast and water from nurses station. denies SI at this time
--- NOTE | 2024-04-08 13:21 | PC.NURSE ---
in and out of room to make peanut butter sandwiches. steady on feet. calm.
--- NOTE | 2024-04-08 13:53 | PC.NURSE ---
Pt was cleaning floors with paper towel. Activity disrupted by meeting with Eli BEJARANO.
--- NOTE | 2024-04-08 15:49 | P.CNPS_ITS ---
History of Present Illness Date of Service: 04/08/2024 Chief Complaint: crisis Sources of Information: patient interviewed, chart reviewed and crisis/core team assessment reviewed HPI Narrative: Mr. Nelson is a 49 year-old male with hx of schizophrenia who self presented to [facility] ED reporting he needed help finding his red trailer. He reports it was taken from him by state officials during the time when it was declared housing state of emergency. He warned providers that he did not come to the ED for medical reasons and asked them to abstain from asking him about his medical history. He also declined vital signs and labs. Collateral information was gathered from [facility] where he typically goes to. Pt was sent by [address] on a section 12a on 03/31/24 stating disheveled, disorganized, delusional focusing on beliefs that he needed the [employer] to issue him an ID, and that congressman Deric Marie represents him and he was focused on belief that governor declared a state of emergency for housing in 2021 and took his red trailer Apparently at the time, court district associate judge asked for psychiatric evaluation to assess pt's safety. Now, this is not the first time that pt has been sent from [facility] to ED on sect 12a. Similar incident took place back on 02/2024, when [facility] sent pt to ED on section 12a for psychiatric evaluation also for delusions and disorganized thought process with same theme of delusions- his red trailer has been taken away on 2021 by government officials. He has been arrested on numerous occasions for trespassing to public library, and other public building. There has never been documented violence towards self or others. Per [facility] records and to our knowledge, despite him being admitted to psychiatric inpatient units several times over the years and at [facility] 3 times this year alone, including recently at [facility] (on 04/01/24), he has not been committed for involuntary psychiatric treatment, assuming that overall he has been homeless since 2014, has same theme of paranoid delusions but no imminent safety concerns in terms of SI or HI, and arguably not found gravely disable as no acute signs of failure to thrive (malnutrition due to inability to secure food due to his paranoia) or physical injuries due to lack of safe mcfp, or medically compromise and refusing medical treatment due to impaired judgment due to his psychiatric symptoms, mainly paranoid and persecutory delusions. Pt seen in the ED. He is wearing hospital gown, no shoes nor socks, feet with callouses but no open wounds nor signs of infection nor edema. As soon as I introduced myself, as WHEEL PRESS CLERK, pt states: just to be clear and on the same page, I am not here for medical reasons. He goes on to repeat theme of needing help finding red trailer to get an ID, he stated in that exact order. He explained delusions of needing [employer] to issue ID and state of emergency declared in 2021 and his trailer taken away from him. He is guarded, but polite. He denied SI/HI. He is not forthcoming with extend of delusional system, but it is evident that his reality is based on complex delusional system secondary to largely untreated schizophrenia. He declined further assistance from case management and did not accept any other options in terms of temporary mcfp, if it was not finding his red trailer. It appears that in the past, [facility] has found housing for him but he declined also due to his paranoid delusions and fear of being controlled by government or other systems. He did not show any signs of aggression towards self or others. He did eat something and reported food here in the hospital was okay but not exactly as he likes it... stating they do things differently here. He had blanket covered his head but not face. He was scanning the room, and denied stating in his room stating that he did not want to waste resources and asking to be allowed to stay in common area of the pod, which is locked. When asked if he was worried about his safety or thought someone was following or trying to harm him, he paused, but later stated no. Past Psychiatric History: Inpt: multiple in the past. [facility] most recently in 03/31/24 op: no current providers. A has been involved in the past. Past medication trials: haldol, risperidone. Review of Systems Review of Systems denies any pain. NO SOB, denies chest pain. will not answer any other questions. [facility] Medical History (Updated 04/09/24 @ 10:53 by Eli Lynn NP) Schizophrenia Diagnostics Vital Signs (24Hr): Vital Signs - 24 hr 04/07/24 18:18 04/07/24 18:32 04/08/24 00:05 Respiratory Rate 16 16 16 04/08/24 06:08 Respiratory Rate 16 BMI result Body Mass Index 23.0 Mental Status Exam Mental Status Exam Narrative: Appearance: wearing hospital gown, fair hygiene in NAD Behavior: polite, but guarded Speech: clear, regular rate, at times pausing but think this is related to carefully craft his answer not to divulge extend of delusional content or believes. Spontaneous. Psychomotor: no agitation or retardation noted Mood: okay Affect: constricted but congruent SI: denies HI: denies VH/AH: underlying Delusions: persecutory and paranoid delusions Insight/judgment: impaired by delusions, but able to access emergency services when in need. Memory/cog: alert,oriented to place, month and year, not to situation. Medications Allergies Allergies Allergy/AdvReac Type Severity Reaction Status Date / Time No Known Allergies Allergy Verified 04/07/24 18:31 Assessment & Plan Assessment & Plan (1) Schizophrenia: Status: Acute Code(s): F20.9 - Schizophrenia, unspecified Plan Mr. Nelson is a 49 year-old male with hx of untreated schizophrenia. He has been homeless since 2015. He has been arrested for trespassing in multiple occasion, no aggression or violence towards self or others and no pending legal charges at least that we are aware. He was recently send from [facility] on 03/31/2024 for psychiatric evaluation. He was subsequently admitted to [facility]. he has not been to our knowledge nor based on [facility] records, which this promotion writer was able tore view where he usually goes, committed for involuntary psychiatric treatment. He clearly declines any psychiatric or medical intervention. He does not agree to taking any antipscyhotic nor discussing his psychiatric illness. No obvious medical complications. He declines labs or vital signs at this point. No SI or HI. No evidence of imminent safety concerns other than chronic risks of being homeless, which is mainly related to his untreated schizophrenia due to paranoid and persecutory delusions which prevents him from trusting and engaging with agencies that have been willing to assist him in meeting basic needs such as housing needs, as [facility] has tried in the past. He does not appear malnourished. He seems to still be resourceful and access some supports, mostly in the ED. PLAN 1. No imminent safety concerns; there is NO evidence of SI/HI nor tangential evidence (note that pt has been chronically unhoused for the past 9 years and this alone can't be basis for involuntary admission) that he is gravely disable due to psychiatric illness, at this point to consider inpatient involuntary admission. Pt is not open to psychiatric treatment voluntarily, otherwise would recommend voluntary inpt level of care. 2. Case management will meet with pt, but he is already declining further assistance, if it does not entail finding his red trailer. Total time managing care of this patient today ____ minutes.
--- NOTE | 2024-04-08 17:58 | PC.NURSE ---
continues to be calm, keeps to himself. NAD.
--- NOTE | 2024-04-08 18:47 | MHC.CM.ED ---
Not an official CM consult. CARE team met with CM to discuss patient. Pt has a long standing hx of schizophrenia and homelessness. Has been hospitalized many times. Just left [facility]. Pt wants housing. Per CARE team, patient has been banned from most shelters due to behaviors. CM gave CARE team [facility] patient resource Booklet 2022. Also gave contact information for [facility] in [place].
--- NOTE | 2024-04-08 19:44 | PC.NURSE ---
patient remains in b[facility] pod, primarily nonverbal, exhibits some paranoid and congregation preoccupation behaviors (standing with head covered in communal areas on a blanket) but maintains safe behavior able to let his wants be known, quiet and poor eye contact. continue to monitor for safety
[2024-04-09 06:30] VITALS: RESP 18
--- NOTE | 2024-04-09 12:32 | MHC.CARE ---
Beef [employer]inder placed calls to all open/available shelters for patient; search exhausted. Also called [facility] for any potential assistance-no resources available there today either.
--- NOTE | 2024-04-09 12:36 | PC.NURSE ---
Pt watching TV in room, calm, asks for food. Breathing even and unlabored, denies pain. Remains refusing any vitals or further interventions.
--- NOTE | 2024-04-09 13:28 | MHC.EDTECH ---
patient states he is not here for medical purposes and refused to get urine collection done .
[2024-04-09 15:59] VITALS: RESP 16
--- NOTE | 2024-04-09 19:26 | PC.NURSE ---
patient appears to remain at rest presently, respirations are even and unlabored patient appears in no distress
--- NOTE | 2024-04-10 10:13 | PC.NURSE ---
Pt has been ambualtor in department. calm. was visited by Dr Becker. Has been eating and drinking.
--- NOTE | 2024-04-10 23:12 | PC.NURSE ---
Assumed care of patient at 2300, patient appears to be in no apparent distress, standing in his room, offering no complaints at this time. Continue plan of care for inpatient bedsearch at this time
[2024-04-11 06:05] VITALS: RESP 16
--- NOTE | 2024-04-12 02:31 | PC.NURSE ---
Addendum entered by Alba Bear 04/12/24 03:01: Pt awake, given sandwich per request. Original Note: This production underwriter assumed care of this Pt at 2300. Pt awake, calm, sitting in chair. Pt ambulated to BR independently with steady gait.
[2024-04-12 02:32] VITALS: RESP 16
--- NOTE | 2024-04-12 06:54 | PC.NURSE ---
Assumed care of patient at 0645, patient appears to be sitting upright in chair in room, respirations even and unlabored, no apparent distress at this time. Continue plan of care for inpatient bedsearch
[2024-04-12 09:31] VITALS: RESP 14
[2024-04-12 14:49] VITALS: BP 0/0; PULSE 0; RESP 16; TEMP -17.7; TEMP 0; O2SAT 0
== END 2024-04-12 14:51 | disposition home or self-care (01) ==
PROVIDERS: Emergency Provider Emergency Medicine Emergency Medical Services
DX: F25.9 Schizoaffective disorder, unspecified (principal); Z59.00 Homelessness unspecified
CPT/HCPCS: 99285; S9485

== ENCOUNTER → 2024-04-07 18:18 | Outpatient (BNV) | payer SELFPAY | PROVIDERS: Emergency Provider Emergency Medicine Emergency Medical Services; Visit Provider Social Worker | DX: F20.9 Schizophrenia, unspecified (principal) | CPT/HCPCS: 99285 ==

== ENCOUNTER 2024-04-13 12:26 | Emergency (ER) | payer SELFPAY ==
[2024-04-13 12:35] VITALS: RESP 16; BMI 24.4
--- NOTE | 2024-04-13 12:43 | ED_ITS ---
HPI - Psych General Chief Complaint: Psychiatric Symptoms Stated Complaint: WANTS TO TALK TO CRISIS PER EMS Time Seen by Provider: 04/13/24 12:30 Source: patient, EMS and old records reviewed Mode of arrival: EMS Limitations: no limitations History of Present Illness ED Provider: RANJITH KU Narrative: 49 yo male with PMH of chronic schizophrenia here with c/o again of us wanting to get him and ID so he can get his trailer back. He has had the police and co- response trying to help him. He denies SI/HI or wanting to hurt anyone but he doesn't like his living situation and states he wants someone to get him an ID. He was seen for same yesterday and he states he wasn't aware that co response was trying to help him. On arrival I explained that our CARE team cannot help him get an ID and while he is annoyed with me he is going to be discharged I offered a ride to the [facility] or [facility] but he is reluctant MD complaint: other Onset (ago): month(s) Duration: intermittent History of same: Yes Relieving factors: none Exacerbating factors: none Context: significant life stressor Associated psychiatric symptoms: none Associated symptoms: denies other symptoms Treatments prior to arrival: none Related Data Home Medications ?Medication ?Instructions ?Recorded ?Confirmed No Known Home Meds 04/07/24 04/07/24 Allergies Allergy/AdvReac Type Severity Reaction Status Date / Time No Known Allergies Allergy Verified 04/13/24 12:39 Review of Systems Review of Systems: Constitutional : No Fever, No Chills ENT/Mouth : No Ear Pain, No Nasal Congestion, No sore throat Eyes: No Eye Pain, No Swelling, No Redness Cardiovascular : No Chest Pain, No SOB Respiratory : No Cough, No Sputum, No Dyspnea Gastrointestinal : No Nausea, No Vomiting, No Diarrhea, No Hematochezia, No Melena Genitourinary : No Dysuria, No Urinary Frequency, No Hematuria Musculoskeletal : No Myalgias Skin : No Skin Lesions, No rash Neuro : No Weakness, No Numbness, No Paresthesias, No Dizziness, No Headache Psych : positive Anxiety, no Depression, no SI/HI Heme/Lymph: No Lymphadenopathy Endocrine : No Polyuria, No Polydipsia All other systems reviewed and are negative [facility] Past Medical History Attestation statement: The following information was validated with the patient. Source: old records reviewed Medical History Schizophrenia Social History Social History Patient Tobacco Use Status: Tobacco use Unknown Physical Exam Vital Signs: Vital Signs: Last Vital Signs Resp 16 04/13/24 12:35 BMI result Body Mass Index 24.4 Appearance: Alert. Oriented X3. No acute distress. Eyes: Pupils equal, round and reactive to light. ENT: Pharynx normal. Neck: Normal inspection. CVS: Pulses normal. Respiratory: No respiratory distress. Abdomen: atraumatic Skin: Skin warm and dry. Normal skin color. dry flaky skin on feet Extremities: No lower extremity edema. Neuro: Oriented X 3. No motor deficit. No sensory deficit. Medical Decision Making Medical Decision Making MDM Narrative: 49 yo male with PMH of chronic schizophrenia here with c/o wanting us to get him an ID - at this time I explained that is not something I can do from the ED and our CARE team cannot do this I offered him a ride to the [facility] but he is reluctant. He keeps asking me to get him a REAL ID which I cannot this has been a chronic issue but he never follows up then declines help. He has no SI/HI he has no medical complaints. Just seen by CARE team yesterday - can be discharged. Differential Diagnosis Differential Diagnoses: The differential diagnosis associated with the presentation includes schizophrenia, poor social situation Admission/Observation Consideration of admission/observation: Escalation of care including a dmission/observation considered he was just seen and cleared by CARE team has no acute presentation of harm to himself or others and only wants us to get an ID for him this is not acute me dical or psychiatric need -offered ride to [facility] but he is possibly declining can be DC Independent Historian Clinical information obtained from an independent historian. History obtained from or confirmed by: EMS External Record Review External record reviewed: Inpatient record Social Determinants Patient?s care significantly limited by Social Determinants of Health including: Inadequate housing and Problems related to primary support group Discharge Plan Discharge Clinical Impression: Chronic schizophrenia Patient Disposition: Home, Self-Care Instructions: Schizophrenia (ED) Additional Instructions: your ID issues are not something we can fix in the hospital please follow up with the [facility] or [facility] return for any medical concerns or needs Prescriptions: No Action No Known Home Meds Interventions: [place]-Suicide Risk Severity Scale Last Done: 04/13/24 12:39 Print Language: Croatian
[2024-04-13 12:50] VITALS: BP 0/0; PULSE 0; RESP 16; TEMP -17.7; TEMP 0; O2SAT 0
== END 2024-04-13 12:55 | disposition home or self-care (01) ==
PROVIDERS: Emergency Provider Emergency Medicine
DX: F20.9 Schizophrenia, unspecified (principal)
CPT/HCPCS: 99283; 99284